=== PATIENT | male | born 1940 | race Caucasian/White ===

== ENCOUNTER 2016-09-03 13:36 | Emergency (ER) | payer MEDICARE, OTHER ==
--- NOTE | ~2016-09-03 | CN ---
Consultation Report [facility] [address] [place]. [address] NAME: BRYAN TALAVERA : 38 STATUS : [facility]#: [id number] AGE: 76 ADM/REG DATE : 09/03/16 MR#: [id number] REPORT SERV DATE: 09/03/16 DICTATED BY: LISANDRA CRANDALL DATE: 09/03/16 REPORT STATUS : Draft TRANSCRIBED BY: MODGarcía DATE: 09/03/16 EMERGENCY ROOM CONSULTATION NOTE DATE OF CONSULTATION: 09/03/2016 REASON FOR CONSULTATION: Possible ipsilateral neurologic changes, one to two weeks' duration, and loss of eyesight right eye due to macular degeneration. HISTORY OF PRESENT ILLNESS: This is a 76-year-old white male, who had a stroke with some resultant right hemiparesis about three years ago. He has had about one or two weeks of decline with some numbness in his right side and thought to have more weakness in his right lower extremity, but this has occurred just in the time period with an acute change since he was taken off what appears to be Exforge at home. He was taken off this because of renal dysfunction. His creatinine remains 1.88, but he was on the ARB and amlodipine combination at home. Hydralazine was substituted and he has had adverse side effects since he started that. These are the adverse side affects as listed above. He had a carotid endarterectomy done by Dr. Bethea on the right side that was felt to be symptomatic and he has had a followup ultrasound at Dr. Bethea's office in the last month showing no evidence of occlusion. He has had no shortness of breath or chest pain. His troponin level was 0.06 and he has evidence of a left bundle-branch block. He has had no chest pain. No cough, fever, chills, night sweats, shortness breath, or dyspnea with exertion. He has had no cardiac arrhythmia or palpitations. His desire is to go home and not be admitted. PAST MEDICAL HISTORY: Stroke three years ago; CABG eight years ago, Dr. Orosco did; macular degeneration, right eye. HOME MEDICATIONS: Are as follows: Artificial tears, aspirin 81 mg p.o. daily, carvedilol 25 mg p.o. b.i.d., hydralazine 100 mg p.o. three times a day, and rosuvastatin 20 mg p.o. at bedtime. ALLERGIES: IODINATED CONTRAST MATERIAL CAUSED RENAL FAILURE. THE PATIENT WAS IN THE INTENSIVE CARE UNIT FOR 30 DAYS AFTER IVP DYE WAS GIVEN WITH ACUTE RENAL SHUTDOWN. FAMILY HISTORY: He has a son, who is an port engineer, who is alive and well. Others have had some high blood pressure and heart disease. 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 [address] NAME: BRYAN TALAVERA : 38 STATUS : DEP ER PAT#: [id number] AGE: 76 ADM/REG DATE : 09/03/16 MR#: [id number] REPORT SERV DATE: 09/03/16 DICTATED BY: LISANDRA CRANDALL DATE: 09/03/16 REPORT STATUS : Draft TRANSCRIBED BY: THUY DATE: 09/03/16 [employer], his son is helping with now. He does not smoke or drink. He lives in [facility] with his . REVIEW OF SYSTEMS: He has had no chest pain, shortness of breath, fever, chills, night sweats. He does have unilateral weakness, but has had worsened only since change of the blood pressure medicine over the last three years. He has had no melena, hematemesis, fits, seizures, nausea, vomiting, diarrhea, headache, double vision, or change in vision. He denies any knowledge of facial weakness, though this may be an old problem. The EKG obtained does have a left bundle-branch block. It may be new. The remainder of the review of systems is negative. PHYSICAL EXAMINATION: VITAL SIGNS: His blood pressure is 189/89 with a heart rate of 75, respiratory rate 16, afebrile. HEENT: EOMI. Sclerae clear. Conjunctivae pink. NECK: No bruit, without any JVD. CHEST: Clear. HEART: Regular S1, S2 without murmur, gallop, or click. ABDOMEN: Soft, nontender. Bowel sounds positive. No HSM. EXTREMITIES: Has no edema on the left side; however, there is 1+ pitting edema on the right side. Distal pulses are intact at the dorsalis pedis bilaterally. NEUROLOGIC: He has weakness on the right side about 4/5 left side and 5/5 strength. Sensory is modestly decreased on the right side as well. He has 3/5 strength on elevation of the right leg. The DTRs are elicitable on left knee, not on the right side. SKIN: Without rash, ecchymosis, or bruising. LYMPHATICS: There is no adenopathy palpable. LABORATORY DATA: CT scan of the brain showed no evidence of acute infarct or hemorrhage. Old left posterior cerebral artery distribution infarct involving the thalamus and occipital lobe with mild generalized atrophy of the deep white matter indicating ischemic change. Chest x-ray PA and lateral was done that showed stable cardiomegaly from prior CABG with mild central vascular congestion. CMP showed sodium 144, potassium 3.3, creatinine 1.8 with BUN 26, glucose is 120, albumin is 2.9. Liver tests were normal. Troponin 0.06. Hemoglobin 14.6, hematocrit 43.2, white count 10.0, platelets were 243,000. The BMP showed a creatinine of 2.29 on the previous specimen back on 08/23/2016. ASSESSMENT: 1. Hypertension. The patient has had problems since he was taken off Exforge. The endothelial stabilizing effect of the ARB may have been some benefit to him in the past. We discussed perhaps going back on this and stopping the hydralazine, which appears to be having infective control of the blood pressure. 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 Consultation Report [address] [place]. [address] NAME: BRYAN TALAVERA : 38 STATUS : [facility]#: [id number] AGE: 76 ADM/REG DATE : 09/03/16 MR#: [id number] REPORT SERV DATE: 09/03/16 DICTATED BY: LISANDRA CRANDALL DATE: 09/03/16 REPORT STATUS : Draft TRANSCRIBED BY: MODL DATE: 09/03/16 3. Head tremor is an old finding for history of IVP dye allergy. 4. History of coronary artery bypass graft. PLAN: The patient desires to go home. I believe that restarting the Exforge would have a little detrimental side effect. His creatinine has come back down from 2.29 down to 1.88. An increase in the creatinine by as much as 1 may be tolerable and attributable to the ARB and would be acceptable if followed up next week by Dr. Dafne Chu or by Dr. Edu Ribera. In addition, because there may be periinfarction zone effect of the vascular constriction, I am going to change the beta-krystle from carvedilol to Bystolic 10 mg a day and asked this be adjusted as an outpatient as well. This has been explained to the family and they are in agreement with this. I discussed with Dr. Gregorio Joya, who had his nurse practitioner see the patient initially and he is in agreement as well. DB/MODL Lisandra Crandall M.D. / [id number] CC: Gato Chowdhury M.D. C. Samuel Ledford, M.D. James Zellner, M.D.
[2016-09-03 12:38] LABS: BASOPHILS 0.3 %; BASOPHILS ABSOLUTE 0.03 10/3/uL (0.0-0.16); EOSINOPHILS 2.7 %; EOSINOPHILS ABSOLUTE 0.27 10/3/uL (0.0-0.53); ER CBC TAT 0 Hrs 05 Mins; HEMATOCRIT 43.2 % (40.0-51.0); HEMOGLOBIN 14.6 g/dL (13.6-17.8); IMMATURE GRANULOCYTES 0.5 %; IMMATURE GRANULOCYTES ABSOLUTE 0.05 10/3/uL (0.0-0.11); LYMPHOCYTES 10.9 %; LYMPHOCYTES ABSOLUTE 1.09 10/3/uL (0.67-4.30); MANUAL DIFF NO %; MEAN CORPUS HGB CONC 33.8 g/dL (32.0-36.0); MEAN CORPUSCULAR HEMOGLOB 27.6 pg (26.0-34.0); MEAN CORPUSCULAR VOLUME 81.7 fL (80-100); MEAN PLATELET VOLUME 9.8 fL (9.2-13.0); MONOCYTES 8.4 %; MONOCYTES ABSOLUTE 0.84 10/3/uL (0.21-1.20); NEUTROPHILS 77.2 %; NEUTROPHILS ABSOLUTE 7.71 10/3/uL (2.02-8.40); PLATELET COUNT 243 10/3/uL (150-400); RBC DISTRIBUTION WIDTH 14.5 % (12.0-16.0); RED CELL COUNT 5.29 10/6/uL (4.7-6.1)
[2016-09-03 12:45] LABS: INTERNATIONAL NORMAL RATI 1.2 UNITS (-); PROTIME (NOT ORD) 14.7 SEC (12.0-14.5)
[2016-09-03 12:46] LABS: PARTIAL THROMBO TIME 35.5 SEC (22.5-37.2)
[2016-09-03 12:55] LABS: A/G RATIO 0.8 (0.7-1.9); ALBUMIN 2.9 G/DL (3.5-5.0); ALKALINE PHOSPHATASE 54 U/L (45-117); BUN (BLOOD UREA NITROGEN) 26 MG/DL (6-23); CALCIUM, SERUM 8.6 MG/DL (8.5-10.4); CHLORIDE, SERUM 110 MMOL/L (96-112); CO2 (CARBON DIOXIDE) 27 MMOL/L (24-34); CREATININE 1.88 MG/DL (0.70-1.30); GFR AFRICAN AMERICAN 39 ML/MIN (>=60); GFR NON AFRICAN AMERICAN 34 ML/MIN (>=60); GLOBULIN 3.5 G/DL (2.5-4.1); GLUCOSE, SERUM 120 MG/DL (60-99); POTASSIUM, SERUM 3.3 MMOL/L (3.5-5.3); SGOT(AST) 7 U/L (5-40); SGPT(ALT) 12 U/L (5-65); SODIUM, SERUM 144 MMOL/L (135-148); TOTAL BILIRUBIN 0.8 MG/DL (0-1.2); TOTAL PROTEIN 6.4 G/DL (6.0-8.5)
[2016-09-03 12:56] LABS: TROPONIN I 0.06 NG/ML (<0.05)
[~2016-09-03 13:36] MED LIST: *UNABLE2; ASAB PO; COREG12 PO; COREG25 PO; DIOVAN HCT320 MG/25 PO; MIRALAXPKT PO; NORV10 PO; PLAVIX PO; ZOCOR40 PO
[2016-09-03] MEDS ORDERED: COREG25 PO (14:46)
[2016-09-03] MEDS ORDERED: ASAB PO (14:47)
[2016-09-03] MEDS ORDERED: CRESTOR20 MG PO (14:47)
[2016-09-03] MEDS ORDERED: HYDRALAZINE100 MG PO (14:47)
[2016-09-03] MEDS ORDERED: TEARS PURE OPH (14:48)
== END 2016-09-03 16:10 | disposition home or self-care (01) ==
LOC: ER 13:36
PROVIDERS: Nurse Practitioner
DX: R29.810 Facial weakness (principal); I12.9 Hypertensive chronic kidney disease with stage 1 through stage 4 chronic kidney disease, or unspecified chronic kidney disease; N18.9 Chronic kidney disease, unspecified; E87.6 Hypokalemia; R79.89 Other specified abnormal findings of blood chemistry; Z86.73 Personal history of transient ischemic attack (TIA), and cerebral infarction without residual deficits; Z95.1 Presence of aortocoronary bypass graft; Z85.46 Personal history of malignant neoplasm of prostate; Z88.8 Allergy status to other drugs, medicaments and biological substances; Z79.82 Long term (current) use of aspirin; Z79.899 Other long term (current) drug therapy
CPT/HCPCS: 70450; 71020; 80053; 84484; 85025; 85610; 85730; 93005; 99285; A9270-GY